=== PATIENT | female | born 1990 | race Caucasian/White ===

== ENCOUNTER 2022-08-13 18:20 | Emergency (ER) | payer SELFPAY ==
[2022-08-13] MEDS ORDERED: ACETAMINOPHEN 325 MG TABLET PO STA (19:33)
[2022-08-13 22:54] LABS: CORONAVIRUS 229E-RESP PCR NOT DETECTED; CORONAVIRUS HKU1-RESP PCR NOT DETECTED; CORONAVIRUS NL63-RESP PCR NOT DETECTED; CORONAVIRUS OC43-RESP PCR NOT DETECTED; HUMAN METAPNEUMOVIRUS NOT DETECTED; RHINOVIRUS/ENTEROVIRUS NOT DETECTED; SARS-CoV-2 -RESP PCR PANEL NOT DETECTED
[2022-08-13 22:55] LABS: B. PARAPERTUSSIS- RESP PCR PAN NOT DETECTED; B. PERTUSSIS- RESP PCR PANEL NOT DETECTED; C. PNEUMONIAE- RESP PCR PANEL NOT DETECTED; INFLUENZA A H1 2009- RESP PCR DETECTED; INFLUENZA B - RESP PCR PANEL NOT DETECTED; M. PNEUMONIAE- RESP PCR PANEL NOT DETECTED; PARAINFLUENZA VIRUS 1 NOT DETECTED; PARAINFLUENZA VIRUS 2 NOT DETECTED; PARAINFLUENZA VIRUS 3 NOT DETECTED; PARAINFLUENZA VIRUS 4 NOT DETECTED; RSV- RESP PCR PANEL NOT DETECTED
[2022-08-13 23:55] VITALS: BP 122/72
--- NOTE | 2022-08-14 00:16 | ED Physician Documentation ---
History of Present Illness - Stated complaint Stated Complaint: FEVER,SOA - Chief complaint Chief Complaint: Fever - History obtained from History obtained from: Patient - Additonal information Additional information: The patient comes to the emergency department chief complaint fevers, chills, aches, cough, rhinorrhea, and sore throat. She states she has been ill for the last several days but that the fevers just started today. Her son is also sick with a similar illness but tested negative for everything at the pediatric clinic yesterday. No other complaints at this time. Review of Systems Ten Systems: 10 systems reviewed and negative Constitutional: reports: Fever, Chills, Myalgias, Fatigue Eyes: reports: Reviewed and negative Ears: reports: Reviewed and negative Nose: reports: Rhinorrhea / runny nose, Congestion Throat: reports: Sore throat Cardiac: reports: Reviewed and negative Respiratory: reports: Cough GI: reports: Reviewed and negative : reports: Reviewed and negative Skin: reports: Reviewed and negative Musculoskeletal: reports: Reviewed and negative Neurologic: reports: Reviewed and negative Psychiatric: reports: Reviewed and negative Endocrine: reports: Reviewed and negative Immunocompromised: reports: Reviewed and negative PD PAST MEDICAL HISTORY - Past Medical History Past Medical History: Yes Cardiovascular: Other Respiratory: None Neuro: None Endocrine/Autoimmune: None GI: None 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 - Present Medications Home Medications: Ambulatory Orders Medication Instructions Recorded Confirmed Aspirin [[place] Aspirin] 81 mg PO DAILY PM 08/13/22 08/13/22 - Allergies Allergies/Adverse Reactions: Allergies Allergy/AdvReac Type Severity Reaction Status Date / Time No Known Drug Allergies Allergy Verified 08/13/22 19:31 - Social History Does the pt smoke?: No Smoking Status: Never smoker Does the pt drink ETOH?: No Does the pt have substance abuse?: No - Immunizations Immunizations are current?: Yes - POLST Patient has POLST: No PD ED PE NORMAL - Vitals Vital signs reviewed: Yes - General General: Alert and oriented X 3, No acute distress, Well developed/nourished, Other (The patient appears to not feel good, and to be mildly ill, but is nontoxic.) - HEENT HEENT: Atraumatic, PERRL, EOMI, Moist mucous membranes - Neck Neck: Supple, no meningeal sign - Cardiac Cardiac: RRR, No murmur, Strong equal pulses - Respiratory Respiratory: No respiratory distress, Clear bilaterally - Abdomen Abdomen: Soft, Non tender, Non distended - Derm Derm: Normal color, Warm and dry, No rash - Extremities Extremities: No deformity, No edema - Neuro Neuro: Alert and oriented X 3 - Psych Psych: Normal mood, Normal affect Results - Vitals Vitals: Vital Signs - 24 hr 08/13/22 08/13/22 08/14/22 19:28 23:54 00:18 Temperature 39.0 C H 36.8 C 36.8 C Heart Rate 120 H 92 92 Respiratory 18 15 16 Rate Blood Pressure 116/63 122/72 122/72 O2 Saturation 99 100 99 Oxygen O2 Source Room air - Labs Labs: Laboratory Tests 08/13/22 19:35 Nasal Adenovirus (PCR) NOT DETECTED Nasal B. parapertussis DNA (PCR) NOT DETECTED Nasal Coronavir 229E PCR NOT DETECTED Nasal Coronavir HKU1 PCR NOT DETECTED Nasal Coronavir NL63 PCR NOT DETECTED Nasal Coronavir OC43 PCR NOT DETECTED Nasal Enterovir/Rhinovir PCR NOT DETECTED Nasal Influ A H1 2009 PCR DETECTED A Nasal Influenza B PCR NOT DETECTED Nasal Parainfluen 1 PCR NOT DETECTED Nasal Parainfluen 2 PCR NOT DETECTED Nasal Parainfluen 3 PCR NOT DETECTED Nasal Parainfluen 4 PCR NOT DETECTED Nasal RSV (PCR) NOT DETECTED Nasal B.pertussis DNA PCR NOT DETECTED Nasal C.pneumoniae (PCR) NOT DETECTED Chriss Human Metapneumo PCR NOT DETECTED Nasal M.pneumoniae (PCR) NOT DETECTED Nasal SARS-CoV-2 (PCR) NOT DETECTED PD MEDICAL DECISION MAKING - ED course Complexity details: reviewed results, re-evaluated patient, considered differential, d/w patient ED course: Patient was worked up with a respiratory PCR panel and found to be positive for influenza A. She was treated for her fever and did respond well and reported feeling better. We have discussed symptomatic management at home, as well as the usual indications for return. Departure - Departure Disposition: 01 Home, Self Care Clinical Impression: Influenza Instructions: ED Flu Comments: Your test today was positive for influenza A. This is a viral illness that will resolve on its own, but sometimes it can take up to a couple of weeks. The worst of the symptoms generally do not last this long though, and you should be noticing improvement over the next few days. Please stay home from work until you are noticeably improving. You may take ibuprofen 600 mg every 6 hours and Tylenol/acetaminophen 650 mg every 4 hours, as needed for fever or other discomforts. Please be sure you get plenty of fluids to drink, as well Forms: Activity restrictions Discharge Date/Time: 08/14/22 00:18
== END 2022-08-14 00:18 | disposition home or self-care (01) ==
LOC: ED 18:20
DX: J10.1 Influenza due to other identified influenza virus with other respiratory manifestations (principal); Z20.822 Contact with and (suspected) exposure to COVID-19
CPT/HCPCS: 87633; 99282; 99283; A9270

== ENCOUNTER 2022-08-15 10:41 | Emergency (ER) | payer SELFPAY ==
[2022-08-15 10:57] VITALS: BP 115/67
--- NOTE | 2022-08-15 13:14 | ED Physician Documentation ---
PD HPI HEENT - Stated complaint Stated Complaint: R EAR PX - Chief complaint Chief Complaint: Heent - History obtained from History obtained from: Patient - Additional information Additional information: Patient has had flulike symptoms for several days and was seen here previously for that however at that time she did have some right ear pain but it looked okay. She was advised to return if she had increasing right ear pain and she states last night the ear started to hurt quite a bit more. It is throbbing. She thought it might start draining and used a heating pad which helped with the pain but it persisted. Today the pain is even worse, but she has improving flulike symptoms, cough and congestion are improving, she is no longer febrile. She does have a history of frequent ear infections as a child and had a adenoidectomy For this reason. 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 - Present Medications Home Medications: Ambulatory Orders Medication Instructions Recorded Confirmed Aspirin [[place] Aspirin] 81 mg PO DAILY PM 08/13/22 08/13/22 Amoxicillin 500 mg PO TID 7 Days #21 cap 08/15/22 - Allergies Allergies/Adverse Reactions: Allergies Allergy/AdvReac Type Severity Reaction Status Date / Time No Known Drug Allergies Allergy Verified 08/15/22 10:56 - Social History Does the pt smoke?: No Smoking Status: Never smoker Does the pt drink ETOH?: No Does the pt have substance abuse?: No - Immunizations Immunizations are current?: Yes - POLST Patient has POLST: No PD ED PE NORMAL - Vitals Vital signs reviewed: Yes - General General: Alert and oriented X 3, No acute distress, Well developed/nourished - HEENT HEENT: Atraumatic, Moist mucous membranes, Pharynx benign, Other (Right TM is bulging, mildly red, no drainage. There are some light blistering In the Ear canal near the os, no blistering of the TM) - Neck Neck: Supple, no meningeal sign, No adenopathy - Cardiac Cardiac: RRR, No murmur - Respiratory Respiratory: No respiratory distress, Clear bilaterally Results - Vitals Vitals: Vital Signs - 24 hr 08/15/22 10:53 Temperature 36.3 C L Heart Rate 92 Respiratory 18 Rate Blood Pressure 115/67 O2 Saturation 98 Oxygen O2 Source Room air PD MEDICAL DECISION MAKING - ED course Complexity details: considered differential, d/w patient ED course: Patient presents with right ear pain that started several days after having flulike symptoms. Her flulike symptoms are stable but the ear pain was worsening so she came in for reevaluation. On exam, she does have a bulging right TM with some mild erythema. There is also some blistering near the opening Of the ear canal. I advised patient that this is still likely viral but given her symptoms are worsening and she does have a bulging and erythema of the right TM it is reasonable to treat with antibiotics for possible acute bacterial otitis media. She was placed on amoxicillin. Recommended continued ibuprofen and Tylenol. Anticipate improvement in next 2 to 3 days if she were to worsen or have no improvement she may follow-up with her primary doctor or return to the ER. Departure - Departure Disposition: 01 Home, Self Care Clinical Impression: Otitis media Qualifiers: Otitis media type: unspecified Chronicity: acute Qualified Code(s): H66.90 - Otitis media, unspecified, unspecified ear Condition: Good Instructions: ED Otitis Media Acute Adult Prescriptions: Amoxicillin 500 mg PO TID 7 Days #21 cap Comments: You presented with right ear pain. This is likely related to your recent influenza diagnosis though does appear that you are now developing an right ear infection. We will treat you with antibiotics for the next 7 days, taking 3 times every day. You can continue ibuprofen and Tylenol. If you have no improvement or worsening symptoms, you may follow-up with ER or your primary care provider. Discharge Date/Time: 08/15/22 13:17
== END 2022-08-15 13:17 | disposition home or self-care (01) ==
LOC: ED 10:41
DX: H66.90 Otitis media, unspecified, unspecified ear (principal)
CPT/HCPCS: 99281; 99282

== ENCOUNTER 2023-03-03 16:57 | Emergency (ER) | payer SELFPAY ==
--- NOTE | 2023-03-03 18:15 | ED Physician Documentation ---
History of Present Illness - Stated complaint Stated Complaint: L ARM PX - Chief complaint Chief Complaint: Ext Problem - Additonal information Additional information: 32-year-old female with a past medical history of a CVA presents with left arm pain and mild swelling. Is been present for about a week, no known injury. It feels tight and sore. She has not noticed any redness. The soreness is radiating up into the shoulder and the chest wall but it started in the arm. She denies any repetitive motion activity, she does have little children that she picks up frequently but often holds them in the right arm. No history of DVT, is on aspirin only status post stroke. 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 - Present Medications Home Medications: Ambulatory Orders Medication Instructions Recorded Confirmed Aspirin [[place] Aspirin] 81 mg PO DAILY PM 08/13/22 08/13/22 - Allergies Allergies/Adverse Reactions: Allergies Allergy/AdvReac Type Severity Reaction Status Date / Time No Known Drug Allergies Allergy Verified 03/03/23 17:03 - Social History Does the pt smoke?: No Smoking Status: Never smoker Does the pt drink ETOH?: No Does the pt have substance abuse?: No - Immunizations Immunizations are current?: Yes - POLST Patient has POLST: No PD ED PE NORMAL - Vitals Vital signs reviewed: Yes - General General: Alert and oriented X 3, No acute distress, Well developed/nourished - HEENT HEENT: Atraumatic, Moist mucous membranes - Cardiac Cardiac: RRR, No murmur - Respiratory Respiratory: No respiratory distress, Clear bilaterally - Derm Derm: Normal color, Warm and dry - Extremities Extremities: No deformity, Normal ROM s pain, Other (Mild left upper arm swelling, no erythema. There is tenderness of the left bicep. No obvious abscess or induration.) Results - Vitals Vitals: Vital Signs - 24 hr 03/03/23 16:59 Temperature 36.1 C L Heart Rate 83 Respiratory 16 Rate Blood Pressure 130/76 O2 Saturation 100 Oxygen O2 Source Room air - Rads (name of study) No standard instances Relevant Findings:: Final report received PD Medical Decision Making - ED course Complexity details: reviewed old records, reviewed results, re-evaluated patient, considered differential, d/w patient, d/w family ED course: 32-year-old female presented with left upper arm pain. She is concerned for possible blood clot given a history of a stroke as reported by her. Her physical exam is reassuring that she had some tenderness in the left bicep. This could be biceps tendinitis, other tendinitis, muscle strain, I think less likely abscess as there is no induration or erythema, and we ruled out blood clot on a ultrasound today. Advised Patient to try NSAIDs, Tylenol, cool compress and light compression. Try to avoid using the arm for the next week or so. If no improvement, follow-up with PCP otherwise if worsening, if develops redness, increased swelling, increased pain or other new concerns, return to the ER. Departure - Departure Disposition: 01 Home, Self Care Clinical Impression: Pain of upper extremity Qualifiers: Laterality: right Qualified Code(s): M79.601 - Pain in right arm Condition: Good Instructions: Biceps Tendonitis Distal Comments: Your ultrasound was negative for any blood clots. You may have a muscle strain, tendinitis or other inflammation and I recommend that you use light compression on this area, use a cool compress and take ibuprofen and Tylenol for pain. If pain persists despite these treatments, please follow-up with your primary doctor and they may do additional imaging.
--- NOTE | 2023-03-03 19:41 | Ultrasound Report ---
PROCEDURE: Duplex Ext Veins Left INDICATIONS: Left arm pain, r/o dvt. hx/o stroke. TECHNIQUE: Real-time imaging, as well as color and pulse Doppler interrogation, were performed of the lower extr emity deep veins from the inguinal ligament to the popliteal fossa. COMPARISON: None. FINDINGS: The deep veins are normally compressible, and free of intraluminal thrombus. Color and pu lse Doppler demonstrate normal phasic intraluminal flow. There is normal augmentation response to di stal compression maneuver. IMPRESSION: No left upper extremity DVT. Reviewed by: Nicolas Chaney MD on 03/03/2023 7:39 PM PDT Approved by: Nicolas Chaney MD on 03/03/2023 7:39 PM PDT Station ID: [id number]
[2023-03-03 19:58] VITALS: BP 105/71
== END 2023-03-03 19:53 | disposition home or self-care (01) ==
LOC: ED 16:57
DX: M79.602 Pain in left arm (principal); Z86.73 Personal history of transient ischemic attack (TIA), and cerebral infarction without residual deficits; Z79.82 Long term (current) use of aspirin
CPT/HCPCS: 99283; 99284